=== PATIENT | male | born 1955 ===

== ENCOUNTER → 2020-12-11 09:09 | Outpatient (BNVA) | payer OTHER, SELFPAY | PROVIDERS: PCP Internal Medicine; Visit Provider Hospitalist | DX: J45.40 Moderate persistent asthma, uncomplicated (principal); J31.0 Chronic rhinitis | CPT/HCPCS: 99202 ==

== ENCOUNTER 2021-11-22 07:50 | Outpatient (REF) | payer MEDICARE, BC, SELFPAY ==
--- NOTE | 2021-11-22 16:59 | PFT_ITS ---
INDICATION: Dyspnea. SPIROMETRY: The FEV1 to FVC of 85% with an FEV1 of 4.08 L, which is 109% predicted, FVC of 4.81 L, which is 95% predicted. No significant response to bronchodilators noted. The maximum voluntary ventilation 119% predicted. LUNG VOLUMES: Total lung capacity 97% predicted with an expiratory reserve volume of 87% predicted. DIFFUSION CAPACITY: DLCO 82% predicted. COMPARISONS: None. INTERPRETATION: No obstructive nor restrictive ventilatory defects identified. No significant response to bronchodilators noted. Normal lung volumes and also low normal diffusion capacity. If asthma is in differential, methacholine challenge may be helpful in assessing for hyper-reactive airways, otherwise clinical correlation warranted. Darrell Davila MD MR/MODL / [id number]
== END 2021-11-22 07:51 | disposition home or self-care (01) ==
LOC: HO.RESP 07:50
PROVIDERS: Visit Provider Hospitalist
DX: J45.909 Unspecified asthma, uncomplicated (principal); R06.00 Dyspnea, unspecified
CPT/HCPCS: 94060; 94727; 94729

== ENCOUNTER → 2021-12-10 08:57 | Outpatient (BNVA) | payer MEDICARE, SELFPAY | PROVIDERS: PCP Internal Medicine; Visit Provider Hospitalist | DX: J31.0 Chronic rhinitis (principal); J45.40 Moderate persistent asthma, uncomplicated | CPT/HCPCS: 99212 ==

== ENCOUNTER → 2022-10-11 08:36 | Outpatient (BNVA) | payer MEDICARE, SELFPAY | PROVIDERS: PCP Internal Medicine; Visit Provider Hospitalist | DX: J45.40 Moderate persistent asthma, uncomplicated (principal); J31.0 Chronic rhinitis | CPT/HCPCS: 99212 ==

== ENCOUNTER 2023-05-18 11:14 | Outpatient (REF) | payer SELFPAY ==
--- NOTE | 2023-05-18 12:55 | MHC.AU.MED ---
Medical Clearance for Hearing Instrumentation Date: 05/18/23 Patient Name: Salvador Julien Date of : 1955 Primary Care Provider: Enrrique Galloway MD We have seen your patient on 05/18/23 and have determined that they are a candidate for amplification (See accompanying report). Specifically, they would benefit from: Hearing aid use in both ears There is a statute that addresses Medical Evaluation Requirements prior to fitting a patient with a hearing aid. According to [place] statute [facility] CMR:6.03(1), (a) General. Except as provided in 265 CMR 6.03(1)(b), a salesperson hearing aids shall not sell a hearing aid unless the prospective user has presented to the salesperson hearing aids a written statement signed by a licensed physician that states that the patient's hearing loss has been medically evaluated and the patient may be considered a candidate for a hearing aid. The medical evaluation must have taken place within the preceding six months. Please note: Due to the [place] Statute referenced above, we cannot accept a signature other than that of a licensed physician. CLIENT ACCOUNT ASSISTANT and PA signatures cannot be accepted. I am in agreement with the above recommendation. There is no medical contraindication for hearing instrumentation. Physician Signature Date Physician Name (Printed)
--- NOTE | 2023-05-18 16:21 | MHC.AU.HA1 ---
Hearing Aid Evaluation Date of Visit: 05/18/23 Historical Information: Description of Hearing: Within normal at 250 Hz sloping to severe sensorineural hearing loss, bilaterally Current personal amplification information: Oticon OPN 1 miniRITEs purchased in November 2017 at [facility] Summary: Salvador has been a long-time, successful hearing aid user. He is a previous patient at [facility] as well as the audiology clinic at [facility]. Although his current hearing aids are still functioning, they have been repaired multiple times and recently seemed to be intermittent. Salvador is interested in pursuing new hearing aids due to the age of his current pair and will then also have a back-up set. He would like to try the rechargeable option as well. Oticon OPN 1 miniRITEs SN: [id number] (left), [id number] (right) Warranty: 06/07/2023, L&D 12/17/2019 Hearing Aid Prescription: Based on the individual?s shared listening needs, communication environments, dexterity, desire for connectivity, and personal preferences, the following prescription for amplification has been made: Right ear: Make, Model, Color: Oticon Real 1 miniRITE-R Color: Black Battery Size: Rechargeable Relief Worker/Slim Tube: 2/85 Type of Earmold/Dome/CShell/SlimTip: 6 mm double benjamin dome Left ear: Left ear prescription to be same as Right Hearing Aid above: Make, Model, Color: Oticon Real 1 miniRITE-R Color: Black Battery Size: Rechargeable Relief Worker/Slim Tube: 2/85 Type of Earmold/Dome/CShell/SlimTip: 6 mm double benjamin dome Plan of Care: Patient wishes to purchase hearing aids as prescribed Action Taken/Action Needed: Hearing Instrument Fitting to be scheduled when materials arrive Primary Diagnosis: H90.3 Bilateral Sensorineural Hearing Loss Signature: Provider: Bailee Tavares, [facility]
== END 2023-05-18 11:15 | disposition home or self-care (01) ==
LOC: HO.HAP 11:14
PROVIDERS: Visit Provider Internal Medicine
DX: Z46.1 Encounter for fitting and adjustment of hearing aid (principal); H90.3 Sensorineural hearing loss, bilateral
CPT/HCPCS: 92590; V5267

== ENCOUNTER 2023-05-18 12:06 | Outpatient (REF) | payer MEDICARE, SELFPAY | END 2023-05-18 12:07 | disposition home or self-care (01) | LOC: HO.SH 12:06 | PROVIDERS: Visit Provider Internal Medicine | DX: Z01.118 Encounter for examination of ears and hearing with other abnormal findings (principal); H90.3 Sensorineural hearing loss, bilateral | CPT/HCPCS: 92557 ==

== ENCOUNTER 2023-05-26 09:32 | Outpatient (REF) | payer SELFPAY ==
--- NOTE | 2023-05-26 12:04 | MHC.AU.HA2 ---
Hearing Instrument Fitting- Adult- Binaural Date of Visit: 05/26/23 Hearing Instruments Dispensed: Right Ear: Make, Model, Color, Serial Number: Oticon Real 1 miniRITE-R SN: [id number] Color: Black Care Management Specialist Repair Warranty: 06/18/2026 Care Management Specialist Loss and Damage Warranty: 06/18/2026 [facility] Service Plan: OPTED OUT Battery Size: Rechargeable Business Sales Consultant/Slim Tube: 2/85 Earmold/Dome/CShell/SlimTip: 6 mm double benjamin dome Type of Wax Guard: miniFit Left Ear: Make, Model, Color, Serial Number: Oticon Real 1 miniRITE-R SN: [id number] Color: Black Care Management Specialist Repair Warranty: 06/18/2026 Care Management Specialist Loss and Damage Warranty: 06/18/2026 [facility] Service Plan: OUTED OUT Battery Size: Rechargeable Business Sales Consultant/Slim Tube: 2/85 Earmold/Dome/CShell/SlimTip: 6 mm double benjamin dome Type of Wax Guard: miniFit Accessories/Assistive Technology: Desktop P D Driver SN: [id number] Warranty: 06/18/2026 SmartCharger SN: [id number] Warranty: 06/18/2026 Summary of Fitting: Performed real ear measurements. Good match to target in mid to high frequencies. Underfit in lows due to Salvador's preference for 6mm double benjamin domes. Comfortable at real ear settings. No feedback noted. Salvador reported the sound quality is significantly clearer than his old hearing aids. Reviewed care and use, particularly rechargeability, as that is a new feature of these hearing aids. Otherwise, Salvador has been a highly compliant, successful hearing aid user so he was familiar with changing domes, wax guards, insertion/removal, etc. Did not pair to cellphone as Salvador reported he can do so himself at home. Recommendations: A hearing instrument follow-up was scheduled. Recommendations (Other): Salvador may call to cancel the follow-up if all is well with his new hearing aids. Diagnosis Code(s): Primary Diagnosis: H90.3 Bilateral Sensorineural Hearing Loss Signature: Provider: Bailee Tavares, [facility]
== END 2023-05-26 09:33 | disposition home or self-care (01) ==
LOC: HO.HAP 09:32
PROVIDERS: Visit Provider Internal Medicine
DX: Z46.1 Encounter for fitting and adjustment of hearing aid (principal); H90.3 Sensorineural hearing loss, bilateral
CPT/HCPCS: V5262; V5299

== ENCOUNTER 2024-08-23 13:25 | Outpatient (REF) | payer MEDICARE, SELFPAY ==
--- NOTE | ~2024-08-23 | XR_ITS ---
EXAMINATION: XR CHEST 2 VIEWS CLINICAL INFORMATION: Moderate persistent asthma, uncomplicated J45.40. COMPARISON: None available. TECHNIQUE: 2 views of the chest were obtained. FINDINGS: No significant abnormality is noted involving the heart, lungs, mediastinum, bony thorax or soft tissues. XR/XR chest 2V IMPRESSION: Unremarkable examination. Electronically signed by: Pb Adams MD 10/29/2024 11:14 AM EST
== END 2024-08-23 13:26 | disposition home or self-care (01) ==
LOC: HO.XRAY 13:25
PROVIDERS: PCP Internal Medicine; Visit Provider Hospitalist
DX: J45.40 Moderate persistent asthma, uncomplicated (principal); J31.0 Chronic rhinitis
CPT/HCPCS: 71046; 99212

== ENCOUNTER 2024-08-23 13:25 | Outpatient (AMB) | payer MEDICARE, SELFPAY ==
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
[2024-08-23 13:33] VITALS: BP 128/70; PULSE 68; O2SAT 97; BMI 25.7
== END 2024-08-23 13:51 | disposition home or self-care (01) ==
PROVIDERS: PCP Internal Medicine; Visit Provider Hospitalist
DX: J31.0 Chronic rhinitis (principal); J45.40 Moderate persistent asthma, uncomplicated
CPT/HCPCS: 99214

== ENCOUNTER 2025-05-15 07:56 | Outpatient (REF) | payer SELFPAY ==
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
--- NOTE | 2025-05-15 08:33 | MHC.AU.HA3 ---
Hearing Instrument Follow-Up- Binaural Date of Visit: 05/15/25 Right Ear: Make, Model, Color, Serial Number: Oticon Real 1 [employer]ITE[employer]R SN: [id number] Color: Black Explosive Ordnance Manager Repair Warranty: 06/18/2026 Explosive Ordnance Manager Loss and Damage Warranty: 06/18/2026 [facility] Service Plan: OPTED OUT Battery Size: Rechargeable Napkin Band Wrapper/Slim Tube: 2/85 Earmold/Dome/CShell/SlimTip:6 mm double benjamin dome (no retention tail) Type of Wax Guard: miniFit Dispensed By: [facility] Date of Fittin05/26/2023 Left Ear: Make, Model, Color, Serial Number: Oticon Real 1 [employer]ITE[employer]R SN: [id number] Color: Black Explosive Ordnance Manager Repair Warranty: 06/18/2026 Explosive Ordnance Manager Loss and Damage Warranty: 06/18/2026 [facility] Service Plan: OUTED OUT Battery Size: Rechargeable Napkin Band Wrapper/Slim Tube: 2/85 Earmold/Dome/CShell/SlimTip: 6 mm double benjamin dome (no retention tail) Type of Wax Guard: miniFit Dispensed By: [facility] Date of Fittin05/26/2023 Follow-Up Summary: HAs reportedly cycling on/off randomly. Also keeps hearing 4 beeps but did not recognize any of standard notifications when played through [employer]. Question if it was related to humidity, as it seemed to occur more often when outside. Per [employer], batteries still in good health. Updated firmware, which may have been cause of issue. Ran through [employer]. Could not replicate issue in office; however, Salvador opted to send HAs to [employer] for in-warranty repair for good measure. Will use old HAs in meantime. Quoted $50.00 due at hot die picker. Recommendations: Patient will be contacted when materials have arrived. Diagnosis Code(s): Primary Diagnosis: H90.3 Bilateral Sensorineural Hearing Loss Signature: Provider: Bailee Tavares, [facility]
== END 2025-05-15 07:57 | disposition home or self-care (01) ==
LOC: HO.HAP 07:56
PROVIDERS: Visit Provider Internal Medicine
DX: Z13.89 Encounter for screening for other disorder (principal)

== ENCOUNTER 2025-06-02 08:51 | Outpatient (REF) | payer SELFPAY ==
--- OUTSIDE RECORDS SUMMARY | 2025-06-02 09:02 | XMS_ITS | Encounter Summary ---
Author Organization [facility] Address [address] [place] [address] Phone Care Team Providers Care Education Instructor Name Role Phone Enrrique Galloway MD Primary Care Provider [phone] Encounter Details Date Type Department Care Team ([facility] Contact Info) Description 08/29/2022 Prep for Surgery [facility] [address], [address] [place] [address] Mary Rain PA-C [address] [facility] [employer] [address] [place] [id number] [email or web address] Social History Tobacco Use Types Packs/Day Years Used Date Smoking Tobacco: Former Cigars Q uit: 2017 Smokeless Tobacco: Former Chew Comments:Occasional cigar do not inhale, haven t had one in 7 years. 2 months of smokeless tobacco in 1987 Alcohol Use Standard Drinks/Week Comments Not Currently 0 (1 standard drink = 0.6 oz pure alcohol) Possible 0 -2 drinks per month Sex and Gender Information Value Date Recorded Sex Assigned at Male 12/29/2021 7:26 PM EST Legal Sex Male 6:55 AM EST Gender Identity Male 12/29/2021 7:26 PM EST Sexual Orientation Straight 12/29/2021 7: 27 PM EST documented as of this encounter Functional Status * Calculated C-SSRS Risk Score (Lifetime/Recent) Answer Date of Assessment Author No Risk Indicated 08/30/2022 2:59 PM EDT Bertola ccini, Holley, RN * [place] Suicide Severity Rating Scale (Screener/Recent Self-Report) Question Answer Date of Assessment Author 1. Wish to be (Past 1 Month) No 08/30/2022 2:59 PM EDT Zaire Coates RN 2. Non-Specific Active Suicidal Thoughts (Past 1 Month) No 08/30/2022 2:59 PM EDT Zaire Coates RN 6. Suicidal Behavior (Lifetime) No 08/30/2022 2:59 PM EDT Zaire Coates RN documented as of this encounter Plan of Treatment Upcoming Encounters Date Type Department Care Team (Late st Contact Info) Description 09/10/2025 9:30 AM EDT Office Visit [facility] in [address] [place] [address] Dayami Middleton MD [address] [place] [address], [address] [place] [address] [email or web address] documented as of this encounter Visit Diagnoses Not on filedocumented in this encounter Care Teams Education Instructor Relationship Specialty Start Date End Date Enrrique Galloway MD PCP - General Internal Medicine 09/08/21 documented as of this encounter Additional Source Comments The information contained in this document represents components of the legal health record. It is not the complete legal health record.[facility]
--- OUTSIDE RECORDS SUMMARY | 2025-06-02 09:02 | XMS_ITS | Clinical Summary ---
Author Organization [facility] Address [address] [place] [address] Phone Care Team Providers Care Frame Table Operator Helper Name Role Phone Enrrique Galloway MD Primary Care Provider [phone] Allergies No known active allergies Medications irbesartan-hydr [...] Type 2 diabetes mellitus wit hout complication ([facility] [place]24, [facility] V28) 10/25/2024 Surgical History Surgery Date Site/Laterality Comments KNEE SURGERY Bilateral arthroscopy Medical History Medical History Date Comments Diabetes mellitus ([facility] V24, [facility] V28) Herpes zoster keratitis Social History Tobacco [...] Screen 08/28/2024 Cholesterol Screening (Lipid Panel) 08/28/2024 Hepatitis C Screening 08/28/2024 Hypertension/CHF/CAD Annual BMP Blood Test 08/28/2024 Medicare Annual Wellness Visit 08/28/2024 Social Influencers of Health Screening 08/28/2024 Diabetes: Annual Urine Albumin-Creatinine Ratio (uACR) 10/25/2024 Diabetes: Blood Sugar Control Test (HGBA1C) 10/25/2024 Depression Screening 11/13/2024 Influenza Vaccine (#1) 2025 , 08/11/2023, 07/27/2020, [...] Maintenance Results * COLONOSCOPY Anesthesia - MAC; [facility] ENDOSCOPY (10/25/2024 9:29 AM EST) Anatomical Region [...] for surveillance. Narrative 10/25/2024 9:30 AM EST [facility] Patient Name: Salvador Julien Procedure Date: [...] without abnormality. Procedure Code(s): --- Professional --- 46250, Colonoscopy, flexible; with biopsy, single or multiple Diagnosis Code(s): --- Professional --- Z86.010, Personal history of colonic polyps D12.4, Benign neoplasm of descending colon CPT copyright 2020 [employer]. All rights reserved. The codes documented in this report are preliminary and upon analog device designer review may be revised to meet current compliance requirements. Meghna Owens MD 10/25/2024 9:30:22 AM This report has been signed electronically.Meghna Owens MD Number of Addenda: 0 Note Initiated On: 10/25/2024 9:04 AM Scope In: Scope Out: Endoscopy Department at [facility] - [address] [place] [phone] Procedure Note Meghna Owens MD - 10/25/2024 [facility] Patient Name: Salvador Julien Procedure Date: [...] without abnormality. Procedure Code(s): --- Professional --- 05561, Colonoscopy, flexible; with biopsy, singleor multiple Diagnosis Code(s): --- Professional --- Z86.010, Personal history of colonic polyps D12.4, Benign neoplasm of descending colon CPT copyright 2020 [employer]. All rights reserved. The codes documented in this report are preliminary and upon analog device designer reviewmay be revised to meet current compliance requirements. Meghna Owens MD 10/25/2024 9:30:22 AM This report has been signed electronically.Meghna Owens MD Number of Addenda: 0 Note Initiated On: 10/25/2024 9:04 AM Scope In: Scope Out: Endoscopy Department at [facility] - [address] [place] [phone] IMPRESSION: - The examined portion of the [...] Recently Relevant to Health Maintenance Insurance MEDICARE [facility] Care Teams Frame Table Operator Helper Relationship Specialty Start Date End Date Enrrique Galloway MD [address] [place] [address] PCP - General Internal Medicine 10/24/24
== END 2025-06-02 08:52 | disposition home or self-care (01) ==
LOC: HO.HAP 08:51
PROVIDERS: Visit Provider Internal Medicine
DX: Z46.1 Encounter for fitting and adjustment of hearing aid (principal)
CPT/HCPCS: 92593

== ENCOUNTER 2025-08-20 08:22 | Outpatient (AMB) | payer MEDICARE, SELFPAY ==
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
[2025-08-20 08:29] VITALS: BP 124/68; PULSE 60; O2SAT 95; BMI 27.6
== END 2025-08-20 09:11 | disposition home or self-care (01) ==
LOC: HO.HPS 08:22
PROVIDERS: PCP Internal Medicine; Visit Provider Hospitalist
DX: J31.0 Chronic rhinitis (principal); J45.40 Moderate persistent asthma, uncomplicated
CPT/HCPCS: 99214

== ENCOUNTER 2025-08-20 08:22 | Outpatient (REF) | payer MEDICARE, SELFPAY ==
--- NOTE | ~2025-08-20 | XR_ITS ---
EXAMINATION: XR CHEST CLINICAL INFORMATION: J45.40 - Moderate persistent asthma, uncomplicated COMPARISON: X-ray 08/23/2024 TECHNIQUE: 2 views of the chest were obtained. FINDINGS: The cardiomediastinal silhouette is within normal limits. The lungs are well expanded. Similar mild right hemidiaphragm elevation. There is no focal consolidation, edema, or effusion. No pneumothorax. Thoracic spine degeneration XR/XR chest 2V IMPRESSION: No acute cardiopulmonary process Electronically signed by: Rich Mosquera MD 08/20/2025 09:10 AM EDT
== END 2025-08-20 08:23 | disposition home or self-care (01) ==
LOC: HO.XRAY 08:22
PROVIDERS: PCP Internal Medicine; Visit Provider Hospitalist
DX: J44.89 Other specified chronic obstructive pulmonary disease (principal); J45.40 Moderate persistent asthma, uncomplicated; J31.0 Chronic rhinitis
CPT/HCPCS: 71046; 99212

== ENCOUNTER → 2025-08-20 08:53 | Outpatient (BNV) | payer MEDICARE, SELFPAY | PROVIDERS: PCP Internal Medicine; Visit Provider Radiology Diagnostic Ultrasound | DX: J45.40 Moderate persistent asthma, uncomplicated (principal) | CPT/HCPCS: 71046 ==